=== PATIENT | female | born 1940 | race Caucasian/White ===

== ENCOUNTER → 2017-09-15 | Outpatient (CLI) | payer MEDICARE, OTHER ==
[~2017-09-15] MED LIST: ATENOLOL 50MG T50 M1 PO; CALCIUM + D SO1 EACH PO; DIOVAN HCT 1601 EACH PO; DIOVAN HCT 3201 EACH PO; DITROPAN XL10 M1 PO; FISH OIL 1,0001 EAC5 PO; MOBIC15 MG PO; PERCOCET 10-321 EACH PO; PERCOCET PO; RESTASIS1 EACH OP
--- NOTE | 2017-09-16 08:10 | PAINCON ---
[address] [address] PAIN MANAGEMENT CONSULTATION Name: MAHI SEN Room: [facility]#: [id number] Admission: 09/15/17 Attend Phys: Zach Mas MD Discharge: Date of : 42 Report #: [id number] THIS REPORT FOR: //name// CC: Dawood Mas DATE OF SERVICE: 09/15/2017 FOLLOWUP COMPLAINT: "Here for an injection." FOLLOWUP HISTORY: The patient is a 77-year-old female who has been seen in the pain clinic because of lumbar radiculopathy. She had been experiencing pain and discomfort, which was quite problematic. It was radiating down into her left leg. She has noted improvement in the L5 area. She notes that it was very helpful. She is no longer having the "shocks down her right leg." She rates her pain as a 2/10. She still is having some discomfort and feels that another injection would be beneficial at this juncture. She has had no complications from the procedure. There continues to be some slight amount of weakness involving the affected side. She still has some soreness in her Achilles tendon. She feels that the Meloxicam continues to be beneficial. She would like to proceed with another epidural steroid injection today. PHYSICAL EXAMINATION: Blood pressure 150/74, heart rate 61, respiratory rate 16, room air saturation 96%. Height 5 feet 6 inches, weight 208 pounds, BMI is 33, and temperature is 97.6. The patient continues to have some discomfort and the pain, which radiates down into the L4-L5 distribution with numbness and tingling particularly on the left side today. Notes that she is having less problem with standing, but still has some discomfort. Continues to note some improvement in her Achilles tendon. IMPRESSION: 1. Lumbar radiculopathy involving the L4-L5 distribution, left and right with numbness, weakness and tingling, which has improved after the last epidural steroid injection. 2. Status post right Achilles tendon repair, progressing well. 3. Multiple degenerative disk disease with spinal stenosis. 4. Epidural lipomatosis. 5. Central spinal canal stenosis at L3-L4 and at L4-L5. 6. Grade 1 anterolisthesis of L4 on L5. 7. Degenerative arthritis. 8. Status post bilateral knee osteoplasty. 9. Status post bilateral carpal tunnel release. 10. Hypertension. RECOMMENDATIONS: We discussed [place] [address] PAIN MANAGEMENT CONSULTATION Name: MAHI SEN Bernabe Room: [facility]#: [id number] Admission: 09/15/17 Attend Phys: Zach Mas MD Discharge: Date of : 42 Report #: [id number] benefits of an epidural steroid injection were again revealed. They could include but are not limited to possibility of infection, increased muscle soreness, headache, bleeding, nerve trauma or worsening of pain. She has thought about this and elects to proceed. PROCEDURE NOTE: The patient was placed in the prone position. Fluoroscopy was used to identify the L4-L5 interspace. This area was sterilely prepped with a Betadine solution. The area was then infiltrated with 0.25% bupivacaine in the needle tract area. A 17-gauge Tuohy with loss of resistance technique was used to gain access to the epidural space. There was no CSF, heme or paresthesia. Anterior, posterior and lateral views were used to confirm appropriate needle placement. A total of 80 mg Depo-Medrol, 40 mg of triamcinolone and 2 mL of 0.25% bupivacaine was injected. The patient tolerated the procedure well. There were no complications. She remained in the pain clinic for an appropriate amount of time. She will follow up in the future as needed. We would like to thank you for letting us participate in her care. We hope she continues to improve. <ELECTRONICALLY SIGNED> By: Zach Mas MD 09/16/17 0810 [id number] [id number]. Ko Mas MD /[facility]
== END | disposition home or self-care (01) ==
LOC: M.PC 01:35
DX: M51.36 Other intervertebral disc degeneration, lumbar region (principal); M48.061 Spinal stenosis, lumbar region without neurogenic claudication; M43.16 Spondylolisthesis, lumbar region; I10 Essential (primary) hypertension; E88.2 Lipomatosis, not elsewhere classified; M19.90 Unspecified osteoarthritis, unspecified site; Z79.899 Other long term (current) drug therapy; Z98.890 Other specified postprocedural states; Z79.891 Long term (current) use of opiate analgesic

== ENCOUNTER 2017-09-16 10:58 | Emergency (ER) | payer MEDICARE, OTHER ==
[~2017-09-16] VITALS: Ht 167.6 cm; Wt 93.0 kg
[~2017-09-16 10:58] MED LIST changes: -PERCOCET 10-321 EACH PO; -PERCOCET PO
[2017-09-16] MEDS ORDERED: PERCOCET 10-321 EACH PO (14:00)
[2017-09-16] MEDS ORDERED: PERCOCET PO (14:07)
[2017-09-16 14:23] VITALS: BP 143/74
== END 2017-09-16 14:24 | disposition home or self-care (01) ==
LOC: M.ERS 10:58
DX: M54.9 Dorsalgia, unspecified (principal); I10 Essential (primary) hypertension; M19.90 Unspecified osteoarthritis, unspecified site; F10.99 Alcohol use, unspecified with unspecified alcohol-induced disorder

== ENCOUNTER → 2017-09-20 | Outpatient (CLI) | payer MEDICARE, OTHER ==
[~2017-09-20] MED LIST changes: +PERCOCET 10-321 EACH PO; +PERCOCET PO
--- NOTE | 2017-09-28 08:48 | PAINCON ---
[address] [address] PAIN MANAGEMENT CONSULTATION Name: MAHI SEN Room: [facility]#: [id number] Admission: 09/20/17 Attend Phys: Zach Mas MD Discharge: Date of : 42 Report #: [id number] THIS REPORT FOR: //name// CC: Dawood Mas DATE OF SERVICE: 09/20/2017 FOLLOWUP COMPLAINT: "I had some increased pain and some weak feeling in my leg and went to the Emergency Room. They told me to follow up with you." FOLLOWUP HISTORY: The patient is a 77-year-old female who has been followed in the pain clinic. As you recall, she suffers from lumbar radiculopathy. Over the years, she has had a number of epidural steroid injections. She has done relatively well. She underwent her last injection on 09/15/2017. Things after that went unremarkable. The patient underwent an epidural steroid injection and remained in the pain clinic for an appropriate amount of time. She then on the following day noted some increased pain and discomfort. She began to have some pain in her back and some shooting discomfort and the pain level cristofer to the level 8/10. She experienced bilateral pain with no change in urinary symptoms, no fever, no cough, no incontinence or other associated symptoms. She was seen in the Emergency Room, she was evaluated, underwent MRI and no significant findings were noted. She was discharged home with Percocet. She has come in today for evaluation. PHYSICAL EXAMINATION: VITAL SIGNS: Blood pressure 168/88, heart rate 60, respiratory rate 16, room air saturation 93%. Height 5 feet 6 inches, weight 211 pounds, BMI is 33.6, temperature 97.8. HEENT: Unremarkable. NECK: Without adenopathy or JVD. HEART: Regular rate. ABDOMEN: Protuberant. The patient is able to walk without significant problems. She does have some perception of her legs feeling a little tingly. She did have severe pain 8/10 down the buttocks on 09/16/2017. Rates her pain today as a 2/10. The patient notes that the sensation to her lower extremities is generally within normal limits, but does have a perception of some tingling type of discomfort. The back area did not indicate any changes which would be consistent with infection. No note of bulging or edema in the low back area. Does note some discomfort with walking and standing. LABORATORY DATA: MRI of the lumbar spine dated 09/16/2017, reveals mild scoliotic curvature of spine. There is anterolisthesis of L4 on L5 measuring [address] [place] [address] PAIN MANAGEMENT CONSULTATION Name: MAHI SEN [id number] Admission: 09/20/17 Attend Phys: Zach Mas MD Discharge: Date of : 42 Report #: [id number] mm with minimal retrolisthesis of L3 on L4 measuring 2 mm. L3-L2 on L3 retrolisthesis measures 4 mm. The alignment is otherwise normal. Vertebral body heights are maintained. There is some mild endplate marrow degenerative change. Marrow signal is otherwise unremarkable. Conus normal position and signal. There is mild lower facet degenerative changes. The right L4-L5 level shows synovial cyst measuring 18 x 10 mm with high T1 signal suggesting high protein content or fat. This suppresses on the fat suppression imaging. There is disk degeneration and decrease height of disk at L2 and L3 through L4-L5. There is moderate narrowing. There is some spurring and disk bulging at these levels. Axial images of L1-L2 showed no focal disk protrusion central canal and neural foramen are maintained. At L3-L4 shows diffuse disk bulging. There is facet spurring and degenerative changes. Central canal is minimally narrowed measuring 9 mm. There is a mild to moderate bilateral inferior foraminal encroachment from the diffuse disk bulge and disk narrowing. L4-L5 shows tight spinal stenosis. Central canal measures 6 mm. There is increase in the transverse dimension. Bilateral inferior foraminal encroachment seen from the anterolisthesis, facet spurring and diffuse disk bulging. There is no focal disk protrusion. Prominent facet degenerative changes noted with some facet joint fluid. IMPRESSION: 1. Lumbar radiculopathy involving the L4-L5 distribution, left and right with numbness and tingling in this suspected area. 2. Status post right Achilles tendon repair, progressing well. 3. Epidural lipomatosis. 4. Status post bilateral knee osteoplasty. 5. Bilateral carpal tunnel releases. 6. Hypertension. RECOMMENDATIONS: We discussed treatment options with the patient. Her MRI was reviewed with the patient on the screen. The pathology was discussed with the patient. She states that she can see some of the problem despite visualizing the MRI. She will use cold compresses to the affected area. She will call us or seek treatment if she notes any changes in her condition. We would like to thank you for letting us participate in her care. We hope she continues to improve. <ELECTRONICALLY SIGNED> By: Zach Mas MD 09/28/17 0848 [id number] [id number]. Ko Mas MD /P[facility]
== END ==
LOC: M.PC 10:09
DX: M54.16 Radiculopathy, lumbar region (principal); E88.2 Lipomatosis, not elsewhere classified; I10 Essential (primary) hypertension; Z96.653 Presence of artificial knee joint, bilateral; Z98.890 Other specified postprocedural states